=== PATIENT | female | born 1995 | race Hispanic/Latino ===

== ENCOUNTER 2018-12-11 08:41 | Emergency (ER) | payer SELFPAY ==
[2018-12-11] MEDS ORDERED: Sterile Water Irrigation 250 ML BOT ONE (09:09)
[2018-12-11] MEDS ORDERED: HYDROcodone/Acetaminophen 5/325 mg Tablet ONE (09:41)
[2018-12-11] MEDS ORDERED: Bacitracin Zinc 1 Packet ONE (09:41)
[2018-12-11] MEDS ORDERED: Acetaminophen 325 MG TAB ONE (09:41)
[2018-12-11] MEDS ORDERED: Lidocaine 1% w/Epinephrine 1:100K 20 ML VIAL ONE (09:41)
[2018-12-11] MEDS ORDERED: Clindamycin 150 MG CAP ONE (09:41)
== END 2018-12-11 10:40 | disposition home or self-care (01) ==
LOC: MADERS 08:41
DX: T63.331A Toxic effect of venom of brown recluse spider, accidental (unintentional), initial encounter (principal); L02.416 Cutaneous abscess of left lower limb; L03.116 Cellulitis of left lower limb
CPT/HCPCS: 10061; J2001